=== PATIENT | female | born 2000 | race Caucasian/White ===

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

== ENCOUNTER 2018-04-21 18:03 | Emergency (ER) | payer OTHER ==
[2018-04-21 18:10] VITALS: BP 113/72; PULSE 75; TEMP 98.6; BMI 37.8
[2018-04-21] MEDS ORDERED: SODIUM CHLORIDE 1,000 ML IV STA (18:46)
--- NOTE | 2018-04-21 18:48 | PDOC ---
History of Present Illness - General History Source: Patient Exam Limitations: No Limitations - History of Present Illness Initial Comments: 04/21/18 18:49 The patient is a 18 year old female, with no significant past medical history, who presents to the emergency department with, 1 day of LLQ pain. As per patient prior to the onset of her symptoms she was experiencing nausea, vomiting , diarrhea, and fever which has since resolved. Her LMP was two weeks ago. She denies recent headache or dizziness. She denies recent dysuria, frequency , urgency or hematuria. She denies recent chest pain or shortness of breath. Allergies: NKDA Past surgical history: None reported. Social history: Nonsmoker. Denies EtOH use and recreational drug use. <Mirna Blackwell - Last Filed: 04/21/18 18:49> - General History Source: Patient <Yoel Ley - Last Filed: 04/23/18 18:47> - General Chief Complaint: Pain Stated Complaint: LLQ PAIN Time Seen by Provider: 04/21/18 18:19 Past History <Mirna Blackwell - Last Filed: 04/21/18 18:49> - Travel Traveled outside of the country in the last 30 days: No Close contact w/someone who was outside of country & ill: No - Past Medical History COPD: No - Suicide/Smoking/Psychosocial Hx Smoking History: Never smoked Have you smoked in the past 12 months: No Hx Alcohol Use: No Drug/Substance Use Hx: No Substance Use Type: None <Yoel eLy - Last Filed: 04/23/18 18:47> - Past Medical History Allergies/Adverse Reactions: Allergies Allergy/AdvReac Type Severity Reaction Status Date / Time No Known Allergies Allergy Verified 04/21/18 18:05 Home Medications: Ambulatory Orders NK [No Known Home Medication] 04/21/18 Review of Systems - Review of Systems Able to Perform ROS?: Yes Constitutional: No: Symptoms Reported, See HPI, Chills, Diaphoresis, Fever, Loss of Appetite, Malaise, Night Sweats, Weakness, Weight Stable, Unintentional Wgt. Loss, Unexplained wgt Loss, Other HEENTM: No: Symptoms Reported, See HPI, Eye Pain, Blurred Vision, Tearing, Recent change in vision, Double Vision, Cataracts, Ear Pain, Ocular Prothesis, Ear Discharge, Nose Pain, Nose Congestion, Tinnitus, Nose Bleeding, Hearing Loss , Throat Pain, Throat Swelling, Mouth Pain, Dental Problems, Difficulty Swallowing, Mouth Swelling, Other Respiratory: No: Symptoms reported, See HPI, Cough, Orthopnea, Shortness of Breath, SOB with Exertion, SOB at Rest, Stridor, Wheezing, Productive cough, Hemoptysis, Other Cardiac (ROS): No: Symptoms Reported, See HPI, Chest Pain, Edema, Irregular Heart Rate, Lightheadedness, Palpitations, Syncope, Chest Tightness, Other ABD/GI: Yes: Other (LLQ pain. ) : No: Symptoms Reported, See HPI, Burning, Dysuria, Discharge, Frequency, Flank Pain, Hematuria, Incontinence, Pain, Urgency, Testicular Mass, Testicular Swelling, Lesions, Testicular Pain, Other (No CVA tenderness. ) Musculoskeletal: No: Symptoms Reported, See HPI, Back Pain, Gout, Joint Pain, Joint Swelling, Muscle Pain, Muscle Weakness, Neck Pain, Joint Stiffness, Other Integumentary: No: Symptoms Reported, See HPI, Bruising, Change in Color, Change in Hair/Nails, Dryness, Erythema, Flushing, Lesions, Lumps, Pallor, Pruritus, Rash, Sweating, Other Neurological: No: Symptoms reported, See HPI, Headache, Numbness, Paresthesia, Pre-Existing Deficit, Seizure, Tingling, Tremors, Weakness, Unsteady Gait, Ataxia, Dizziness, Other Psychiatric: No: Anxiety, Depression, Frequent Crying, Stressors, Sleep Pattern Change, Emotional Problems, Mood Swings, Change in Appetite, Other Endocrine: No: Symptoms Reported, See HPI, Excessive Sweating, Flushing, Intolerance to Cold, Intolerance to Heat, Increased Hunger, Increased Thirst, Increased Urine, Unexplained Weight Gain, Unexplained Weight Loss, Change in Weight, Other Hematologic/Lymphatic: No: Symptoms Reported, See HPI, Anemia, Blood Clots, Easy Bleeding, Easy Bruising, Bleeding Diathesis, Lymph Node Abnormalities, Swollen Glands, Other All Other Systems: Reviewed and Negative <Mirna Blackwell - Last Filed: 04/21/18 18:49> *Physical Exam - Vital Signs Last Vital Signs Temp Pulse Resp BP Pulse Ox 98.6 F 75 18 113/72 97 04/21/18 18:04 04/21/18 18:04 04/21/18 18:04 04/21/18 18:04 04/21/18 18:04 - Physical Exam General Appearance: Yes: Nourished, Appropriately Dressed HEENT: positive: Normal ENT Inspection, Normal Voice Neck: positive: Supple Respiratory/Chest: positive: Lungs Clear, Normal Breath Sounds Cardiovascular: positive: Regular Rhythm, Regular Rate Gastrointestinal/Abdominal: positive: Normal Bowel Sounds, Tender (LLQ with deep palpation. ), Soft, Tenderness. negative: Organomegaly, Pulsatile Mass, Increased Bowel Sounds, Decreased BS, Distended, Guarding, Rebound, Hernia, Mass , Hepatomegaly, Spleenomegaly Musculoskeletal: positive: Normal Inspection. negative: CVA Tenderness, CVA Tenderness (R), CVA Tenderness (L), Decreased Range of Motion, Muscle Spasm, Vertebral Tenderness, Other Extremity: positive: Normal Inspection, Normal Range of Motion Integumentary: positive: Normal Color, Dry, Warm Neurologic: positive: learning coordinator II-XII NML intact, Fully Oriented, Alert, Normal Mood/ Affect, Normal Response <Mirna Blackwell - Last Filed: 04/21/18 18:49> - Vital Signs Last Vital Signs Temp Pulse Resp BP Pulse Ox 98.6 F 75 18 113/72 97 04/21/18 18:04 04/21/18 18:04 04/21/18 18:04 04/21/18 18:04 04/21/18 18:04 <Yoel Ley - Last Filed: 04/23/18 18:47> Moderate Sedation - Procedure Monitoring Vital Signs: Procedure Monitoring Vital Signs Temperature 98.6 F 04/21/18 18:04 Pulse Rate 75 04/21/18 18:04 Respiratory Rate 18 04/21/18 18:04 Blood Pressure 113/72 04/21/18 18:04 O2 Sat by Pulse Oximetry (%) 97 04/21/18 18:04 <Mirna Blackwell - Last Filed: 04/21/18 18:49> - Procedure Monitoring Vital Signs: Procedure Monitoring Vital Signs Temperature 98.6 F 04/21/18 18:04 Pulse Rate 75 04/21/18 18:04 Respiratory Rate 18 04/21/18 18:04 Blood Pressure 113/72 04/21/18 18:04 O2 Sat by Pulse Oximetry (%) 97 04/21/18 18:04 <Yoel Ley - Last Filed: 04/23/18 18:47> ED Treatment Course - LABORATORY CBC & Chemistry Diagram: 04/21/18 18:45 04/21/18 18:49 <Mirna Blackwell - Last Filed: 04/21/18 18:49> - LABORATORY CBC & Chemistry Diagram: 04/21/18 18:45 04/21/18 18:49 <Yoel Ley - Last Filed: 04/23/18 18:47> *DC/Admit/Observation/Transfer - Attestations Scribe Attestion: 04/21/18 18:54 Documentation prepared by Mirna Blackwell, acting as medical coordinator pesticide use for Yoel Ley MD. <Mirna Blackwell - Last Filed: 04/21/18 18:49> <Yoel Ley - Last Filed: 04/23/18 18:47> Diagnosis at time of Disposition: Gastroenteritis - Discharge Dispostion Disposition: HOME Condition at time of disposition: Stable - Patient Instructions Printed Discharge Instructions: Diarrhea Additional Instructions: drink plenty of fluids imodium/kaopectate as needed for diarrhea Return to ER if you have vomiting/worsening pain or fever Follow-up with your doctor within the next 48 hours
[2018-04-21 19:06] LABS: URINE APPEARANCE Not; URINE BILIRUBIN Negative (NEGATIVE); URINE COLOR Not; URINE GLUCOSE (UA) Negative (NEGATIVE); URINE KETONE Negative (NEGATIVE); URINE LEUK ESTERASE 1+ (NEGATIVE); URINE NITRITE Negative (NEGATIVE); URINE PROTEIN Negative (NEGATIVE)
[2018-04-21 19:07] LABS: BASO % 0.9 % (0-2.0); EOS % 1.1 % (0-4.5); HEMATOCRIT 42.4 % (32.4-45.2); HEMOGLOBIN 13.9 GM/dl (10.7-15.3); MCH 27.6 pg (25.7-33.7); MCHC 32.8 g/dl (32.0-36.0); MEAN CELL VOLUME 84.3 fl (80-96); MEAN PLT VOLUME 9.5 fl (7.5-11.1); PLATELET COUNT 242 K/MM3 (134-434); RBC 5.03 M/mm3 (3.60-5.2); RDW 12.7 % (11.6-15.6); WHITE BLOOD COUNT 8.8 K/mm3 (4.0-10.8)
[2018-04-21 19:21] LABS: ALBUMIN 4.1 g/dl (3.4-5.0); ALK PHOS 76 U/L (45-117); ANION GAP 7 MMOL/L (8-16); BILIRUBIN,TOTAL 0.3 mg/dl (0.2-1); BLOOD UREA NITROGEN 11 mg/dl (7-18); CALCIUM 9.3 mg/dl (8.5-10); CHLORIDE 105 mmol/L (98-107); CO2 25 mmol/L (21-32); GLUCOSE,RANDOM 101 mg/dl (74-106); POTASSIUM 3.9 mmol/L (3.5-5.1); SGOT/AST 24 U/L (15-37); SGPT/ALT 44 U/L (13-61); SODIUM 137 mmol/L (136-145)
[2018-04-21 19:22] LABS: CREATININE < 0.6 mg/dl (0.55-1.3)
--- NOTE | 2018-04-21 19:38 | PDOC ---
*Physical Exam - Vital Signs Last Vital Signs Temp Pulse Resp BP Pulse Ox 98.6 F 75 18 113/72 97 04/21/18 18:04 04/21/18 18:04 04/21/18 18:04 04/21/18 18:04 04/21/18 18:04 ED Treatment Course - LABORATORY CBC & Chemistry Diagram: 04/21/18 18:45 04/21/18 18:49 - ADDITIONAL ORDERS Additional order review: Laboratory Results 04/21/18 04/21/18 04/21/18 18:49 18:49 18:35 Sodium 137 Potassium 3.9 Chloride 105 Carbon Dioxide 25 Anion Gap 7 L BUN 11 Creatinine < 0.6 Creat Clearance w eGFR > 60 Random Glucose 101 Calcium 9.3 Total Bilirubin 0.3 AST 24 ALT 44 Alkaline Phosphatase 76 Total Protein 8.0 Albumin 4.1 Urine Color Not Urine Appearance Not Urine pH 7.0 Ur Specific [place] 1.025 Urine Protein Negative Urine Glucose (UA) Negative Urine Ketones Negative Urine Blood Negative Urine Nitrite Negative Urine Bilirubin Negative Urine Urobilinogen 1.0 Ur Leukocyte Esterase 1+ H Urine HCG, Qual Negative 04/21/18 18:45 RBC 5.03 MCV 84.3 MCHC 32.8 RDW 12.7 MPV 9.5 Neutrophils % 62.0 Lymphocytes % 28.0 Monocytes % 8.0 Eosinophils % 1.1 Basophils % 0.9 Progress Note - Progress Note Progress Note: Care of this patient received from Laboratory evaluation is essentially normal. Patient interviewed and reexamined : She is comfortable now without any further abdominal pain. She has no tenderness or masses on abdominal exam. Patient will be discharged with instructions to continue fluids with light diet and advancement of diet as tolerated. She can use Imodium/Kaopectate/Pepto- Bismol as needed for diarrhea. She should follow-up with her doctor within the next 2-3 days *DC/Admit/Observation/Transfer Diagnosis at time of Disposition: Gastroenteritis - Discharge Dispostion Disposition: HOME Condition at time of disposition: Stable - Referrals - Patient Instructions Printed Discharge Instructions: Diarrhea Additional Instructions: drink plenty of fluids imodium/kaopectate as needed for diarrhea Return to ER if you have vomiting/worsening pain or fever Follow-up with your doctor within the next 48 hours - Post Discharge Activity
[2018-04-21] MEDS ORDERED: KETOROLAC TROMETHAMINE 30 MG/1 ML VIAL IVPUSH ONE (19:45)
[2018-04-21] MEDS ORDERED: KETOROLAC TROMETHAMINE 30 MG/1 ML VIAL ONE (19:49)
[2018-04-21 19:57] LABS: URINE RBC 0-2 /hpf (0-3)
[2018-04-21 19:58] LABS: EPI CELLS FEW /HPF; URINE BACTERIA 2+ /hpf (NEGATIVE)
== END 2018-04-21 20:01 | disposition home or self-care (01) ==
LOC: FER 18:03
PROC: 3E0333Z Introduction of Anti-inflammatory into Peripheral Vein, Percutaneous Approach (ICD-10-PCS; principal; 2018-04-21)
PROC: 3E0337Z Introduction of Electrolytic and Water Balance Substance into Peripheral Vein, Percutaneous Approach (ICD-10-PCS; 2018-04-21)
DX: K52.9 Noninfective gastroenteritis and colitis, unspecified (principal)
CPT/HCPCS: 36415; 80053; 81003; 81015; 84703; 85025; 96361; 96374; 99283-25; J7030

== ENCOUNTER 2022-10-19 21:04 | Emergency (ER) | payer OTHER ==
[2022-10-19 21:11] VITALS: BP 124/69; PULSE 94; RESP 18; TEMP 99.1; BMI 41.1
[2022-10-19] MEDS ORDERED: DIPHTH,PERTUSS(ACELL),TET 0.5 ML DISP.SYRIN IM ONE ×2 (21:55→22:07)
[2022-10-19] MEDS ORDERED: KETOROLAC TROMETHAMINE 30 MG/1 ML VIAL IM ONE (21:55)
[2022-10-19] MEDS ORDERED: KETOROLAC TROMETHAMINE 30 MG/1 ML VIAL ONE (22:07)
== END 2022-10-19 23:44 | disposition home or self-care (01) ==
LOC: JER 21:04 → JERFT 21:04
PROC: 0HQDXZZ Repair Right Lower Arm Skin, External Approach (ICD-10-PCS; principal; 2022-10-19)
PROC: 3E0234Z Introduction of Serum, Toxoid and Vaccine into Muscle, Percutaneous Approach (ICD-10-PCS; 2022-10-19)
PROC: 3E0233Z Introduction of Anti-inflammatory into Muscle, Percutaneous Approach (ICD-10-PCS; 2022-10-19)
DX: S51.811A Laceration without foreign body of right forearm, initial encounter (principal); W26.8XXA Contact with other sharp object(s), not elsewhere classified, initial encounter; W19.XXXA Unspecified fall, initial encounter
CPT/HCPCS: 12001-25; 90471; 90715; 96372; 99284-25

== ENCOUNTER 2022-10-30 10:43 | Emergency (ER) | payer OTHER ==
[2022-10-30 10:49] VITALS: BP 126/73; PULSE 101; RESP 18; TEMP 98.6; BMI 39.4
== END 2022-10-30 11:41 | disposition home or self-care (01) ==
LOC: JERFT 10:43
DX: Z48.02 Encounter for removal of sutures (principal)
CPT/HCPCS: 99281-25